=== PATIENT | male | born 1970 | race Caucasian/White ===

== ENCOUNTER 2019-03-13 07:15 | Emergency (ER) | payer OTHER ==
[~2019-03-13] VITALS: Ht 167.6 cm; Wt 61.2 kg
[2019-03-13] MEDS ORDERED: NORCO 5-325 TA1 EAC1 PO (08:35)
[2019-03-13] MEDS ORDERED: FLEXERIL PO (08:35)
[2019-03-13 08:38] VITALS: BP 122/91
== END 2019-03-13 08:38 | disposition home or self-care (01) ==
LOC: M.ERS 07:15
DX: S30.0XXA Contusion of lower back and pelvis, initial encounter (principal); W13.2XXA Fall from, out of or through roof, initial encounter; Y93.89 Activity, other specified; Y92.89 Other specified places as the place of occurrence of the external cause; Y99.8 Other external cause status

== ENCOUNTER 2019-07-16 14:59 | Emergency (ER) | payer OTHER ==
[~2019-07-16] VITALS: Ht 167.6 cm; Wt 59.0 kg
[~2019-07-16 14:59] MED LIST: FLEXERIL PO; NORCO 5-325 TA1 EAC1 PO
[2019-07-16] MEDS ORDERED: HYDROCODON-ACE1 EAC7 PO (17:33)
[2019-07-16] MEDS ORDERED: CYCLOBENZAPRINE5 MG PO (17:33)
[2019-07-16] MEDS ORDERED: TORADOL 10 MG T10 MG PO (17:33)
[2019-07-16 17:51] VITALS: BP 115/75
== END 2019-07-16 17:51 | disposition home or self-care (01) ==
LOC: M.ERS 14:59
DX: M54.32 Sciatica, left side (principal)

== ENCOUNTER 2019-07-31 16:13 | Emergency (ER) | payer OTHER ==
[~2019-07-31] VITALS: Ht 167.6 cm; Wt 63.5 kg
[~2019-07-31 16:13] MED LIST changes: +CYCLOBENZAPRINE5 MG PO; +HYDROCODON-ACE1 EAC7 PO; +TORADOL 10 MG T10 MG PO
[2019-07-31] MEDS ORDERED: HYDROXYZINE HCL25 M2 PO (17:39)
[2019-07-31] MEDS ORDERED: MEDROLDOSEPACK PO (17:40)
[2019-07-31 17:57] VITALS: BP 125/71
== END 2019-07-31 17:58 | disposition home or self-care (01) ==
LOC: M.ERS 16:13
DX: L29.9 Pruritus, unspecified (principal); F17.210 Nicotine dependence, cigarettes, uncomplicated

== ENCOUNTER 2020-12-29 09:40 | Emergency (ER) | payer OTHER ==
[~2020-12-29] VITALS: Ht 167.6 cm; Wt 61.2 kg
[~2020-12-29 09:40] MED LIST changes: +HYDROXYZINE HCL25 M2 PO; +MEDROLDOSEPACK PO
[2020-12-29] MEDS ORDERED: HYDROCODON-ACE1 EAC7 PO (10:11)
[2020-12-29] MEDS ORDERED: FLEXERIL PO (10:11)
[2020-12-29] MEDS ORDERED: PREDNISONE 20 M20 M1 PO (10:11)
[2020-12-29 10:28] VITALS: BP 116/77
== END 2020-12-29 10:29 | disposition home or self-care (01) ==
LOC: M.ERS 09:40
DX: M54.42 Lumbago with sciatica, left side (principal); F17.210 Nicotine dependence, cigarettes, uncomplicated

== ENCOUNTER 2021-04-21 09:24 | Emergency (ER) | payer OTHER ==
[~2021-04-21] VITALS: Ht 167.6 cm; Wt 63.5 kg
[~2021-04-21 09:24] MED LIST changes: +PREDNISONE 20 M20 M1 PO
[2021-04-21] MEDS ORDERED: FLEXERIL PO (09:56)
[2021-04-21] MEDS ORDERED: HYDROCODON-ACE1 EAC7 PO ×2 (10:26→12:06)
[2021-04-21] MEDS ORDERED: MEDROLDOSEPACK PO (12:09)
[2021-04-21] MEDS ORDERED: IBUPROFEN 800800 M1 PO (12:09)
[2021-04-21 12:20] VITALS: BP 123/92
== END 2021-04-21 12:20 | disposition home or self-care (01) ==
LOC: M.ERS 09:24
DX: M54.42 Lumbago with sciatica, left side (principal); G89.29 Other chronic pain; M51.37 Other intervertebral disc degeneration, lumbosacral region; F17.210 Nicotine dependence, cigarettes, uncomplicated; Z79.899 Other long term (current) drug therapy